=== PATIENT | male | born 1990 | race African-American/Black ===

== ENCOUNTER 2017-01-08 08:12 | Emergency (ER) | payer MEDICAID ==
--- NOTE | ~2017-01-08 | CR72 ---
[facility] A Service of [facility] RADIOLOGY TEXT RESULTS PATIENT: JUAN R JIMENEZ LOCATION: [facility] : 88 UNIT #: [id number] AGE: [address]: Jewels Crockett MD SEX: M ORDER DR: [id number] [facility] [address]. [place], [place] [address] [id number] MR#: [id number] Acc #: [id number] NAME: JUAN R JIMENEZ : 1990 SEX: M STUDY DATE/TIME: 01/08/2017 8:05 UNIT: [facility] ROOM: STUDY DESCRIPTION: CR Chest Single View Portable Attending Physician: Jewels Crockett M.D. Ordering Physician: Jewels Crockett M.D. Primary Care Physician: Primary Care Physician No MEDICAL IMAGING REPORT This report is preliminary unless electronic signature is present EXAM Portable chest INDICATION 26-year male with fever and body aches for 1 day. COMPARISON No comparisons FINDINGS There is mild mid and lower zone interstitial opacities. Given the patient's history, this may be infectious. Heart size is normal for technique. There is a questionable area of atelectasis or infiltrate within the left base. Visualized osseous structures are unremarkable. IMPRESSION There are mild bilateral mid and lower zone interstitial opacities and a questionable infiltrate or atelectasis in the left base. Given the patient's history, findings may be infectious. Followup to clearing is recommended. Dictated by... Pernell Gould M.D. THIS IS AN ELECTRONICALLY VERIFIED REPORT Pernell Gould M.D. at 01/08/2017 5:02 PM Lilli TD: 01/08/2017 09:59 JOB #: [id number] MEDICAL IMAGING REPORT Page 1 of 1 COPY
[2017-01-08 07:01] LABS: INFLUENZA A NEG (NEG); INFLUENZA B NEG (NEG)
[2017-01-08 08:46] LABS: BASOPHIL% 0.3 % (0-2.5); EOSINOPHIL# 0.3 X10e3 (0-0.7); EOSINOPHIL% 3.8 % (0.0-7.0); HEMATOCRIT 44.8 % (38.0-50.0); HEMOGLOBIN 14.6 gm/dL (13.0-16.0); LYMPHOCYTE# 1.6 X10e3 (1.0-3.5); LYMPHOCYTE% 20.2 % (17.0-45.0); MEAN CELL VOLUME 88.1 FL (83-96); MEAN CORPUSCULAR HEMOGLOBIN 28.7 PG (28-34); MEAN CORPUSCULAR HGB CONC 32.5 g/dL (30-36); MEAN PLATELET VOLUME 10.5 FL (6.5-11.5); MONOCYTE# 0.5 X10e3 (0-1.0); MONOCYTE% 6.8 % (3.0-12.0); NEUTROPHIL# 5.4 X10e3 (1.5-7.1); NEUTROPHIL% 68.9 % (40-75); PLATELET COUNT 218 X10e3 (140-420); RED BLOOD COUNT 5.08 X10e (3.90-5.60); RED CELL DISTRIBUTION WIDTH 13.4 % (11.0-15.5); WHITE BLOOD COUNT 7.9 X10e3 (4.0-10.5)
[2017-01-08 08:52] LABS: DIFF IND NO
[2017-01-08 09:22] LABS: URINE SOURCE CLEAN CATCH
[2017-01-08 09:26] LABS: ALBUMIN SERUM 3.9 g/dL (3.5-5.0); BILIRUBIN, DIRECT 0.1 mg/dL (0.0-0.2); BILIRUBIN,INDIRECT 0.6 mg/dL (0.0-0.9); BILIRUBIN,TOTAL 0.7 mg/dL (0.2-2.0); CALCIUM SERUM 8.7 mg/dL (8.4-10.2); POTASSIUM 3.8 mmol/L (3.5-5.1); PROTEIN TOTAL SERUM 6.8 g/dL (6.0-8.3)
[2017-01-08 09:27] LABS: URINE APPEARANCE CLEAR; URINE BILIRUBIN NEG (NEG); URINE BLOOD 2+ (NEG); URINE COLOR YELLOW; URINE GLUCOSE NEG (NEG); URINE KETONE NEG (NEG); URINE LEUKOCYTE ESTERASE NEG (NEG); URINE NITRATE NEG (NEG); URINE PH 5.5 (5-8); URINE PROTEIN NEG (NEG); URINE SPECIFIC GRAVITY 1.024 (1.003-1.035); URINE UROBILINOGEN 0.2 MG/DL (NEG)
[2017-01-08 09:30] LABS: URINE BACTERIA AUWI NEG (NEGATIVE); URINE SQUAMOUS EPITHELIAL CELL NONE SEEN /[HPF]; UWBCS1 AUWI 0-2 (0-5)
[2017-01-08 09:37] LABS: CULTURE INDICATED? NO
== END 2017-01-08 11:20 | disposition home or self-care (01) ==
LOC: CED 08:12
PROVIDERS: Emergency Medicine
DX: R50.9 Fever, unspecified (principal); J45.909 Unspecified asthma, uncomplicated; I10 Essential (primary) hypertension; Z88.0 Allergy status to penicillin
CPT/HCPCS: 36415; 71010; 80048; 80076; 81003; 85025; 87651; 87804; 96360; 99284